=== PATIENT | male | born 1990 | race Native Hawaiian/Other Pacific Islander ===

== ENCOUNTER 2018-04-06 12:49 | Outpatient (CLI) | payer OTHER | END 2018-04-06 22:13 | disposition home or self-care (01) | LOC: LABW 12:49 | DX: J98.8 Other specified respiratory disorders (principal); Z87.01 Personal history of pneumonia (recurrent); A31.0 Pulmonary mycobacterial infection | CPT/HCPCS: 87070; 87077; 87185; 87186; 87205 ==